=== PATIENT | male | born 1985 | race Caucasian/White ===

== ENCOUNTER 2020-08-04 10:08 | Emergency (ER) | payer BC, MEDICAID ==
[~2020-08-04] VITALS: Ht 172.7 cm; Wt 61.2 kg
--- NOTE | 2020-08-04 11:30 | NUR ---
ED Nurse Note:pt. came with right eye irritation, irrigation with NS was done via amanda ricks
[2020-08-04 12:09] VITALS: BP 133/75
[2020-08-04] MEDS ORDERED: Fluorescein Strips RIGHT EYE ONE (13:00)
--- NOTE | 2020-08-04 13:37 | Emergency Room Report ---
History of Present Illness General Chief Complaint: Eye Problems Source: Patient Present Illness HPI The patient states that earlier this morning he was handling a succulent plant and some of the steps from the plant squirted into his right eye. He states he had irritation and pain in the right eye. He denies trauma. He states this was only the staff and not any part of the plant itself. He states at times will have blurry vision but then he will blink and his vision will be clear. He has no other injuries or complaints. Allergies: Coded Allergies: No Known Allergies (Unverified , 08/04/20) COVID-19 Screening Contact w/high risk pt: No Experienced COVID-19 symptoms?: No COVID-19 Testing performed FAMILY HEALTH NURSE PRACTITIONER: No Patient History Past Medical History: none Social History: Denies: smoking, alcohol use, drug use Reviewed Nursing Documentation: PMH: Agreed; PSxH: Agreed Nursing Documentation-PMH Past Medical History: No Stated History Review of Systems All Other Systems: negative except mentioned in HPI Physical Exam Vital Signs Date Time Temp Pulse Resp B/P (MAP) Pulse Ox O2 Delivery O2 Flow Rate FiO2 08/04/20 10:13 98.6 105 16 133/75 (94) 95 Room Air Sp02 EP Interpretation: reviewed, normal General Appearance: no apparent distress, alert, GCS 15, non-toxic Head: normocephalic, atraumatic Eyes: right eye other - conjunctival erythema, No fluorescin uptake on wood's lamp examination.; left eye normal inspection; bilateral eye PERRL, bilateral eye EOMI ENT: hearing grossly normal, no angioedema, normal voice Neck: normal inspection, full range of motion Respiratory: no respiratory distress, no retraction, no accessory muscle use, speaking full sentences Rectal: deferred Musculoskeletal: normal inspection, gait/station normal, non-tender Neurologic: alert, motor strength/tone normal, oriented x3, sensory intact, responsive, speech normal Psychiatric: judgement/insight normal, memory normal, mood/affect normal, no suicidal/homicidal ideation Medical Decision Making Diagnostic Impression: Primary Impression: Chemical conjunctivitis ER Course This patient has a chemical conjunctivitis. The patient underwent irrigation by Deny suzanne. There is no evidence of eye injury. Fluorescein uptake was negat bryan. I will place the patient on topical antibiotics and have the patient follow-up in the next 24 hours with an osteologist or tire mechanic. The patient is given close return precautions and follow-up instructions. Last Vital Signs Date Time Temp Pulse Resp B/P (MAP) Pulse Ox O2 Delivery O2 Flow Rate FiO2 08/04/20 12:09 98.6 16 133/75 95 Room Air 08/04/20 10:13 105 Status: improved Disposition: HOME, SELF-CARE Condition: Improved Referrals: [facility] (PCP) Patient Instructions: Chemical Conjunctivitis, [id number] Nicky Bauer DO Aug 04, 2020 13:37
[2020-08-04 13:38] VITALS: BP 124/73
[2020-08-04] MEDS ORDERED: ERYTHROMYCIN3.5 GM RIGHT EYE (13:38)
--- NOTE | 2020-08-04 13:39 | NUR ---
ED Nurse Note: Pt cleared by health care Provider for discharge. DC instructions/prescription was given and explained to pt and verbalized understanding of teachings. All medical deviecs such as ID band removed. Pt is AAO x4, ambulatory and left with all personal belongings.
== END 2020-08-04 13:45 | disposition home or self-care (01) ==
LOC: EMR 11:55
DX: H10.211 Acute toxic conjunctivitis, right eye (principal)
CPT/HCPCS: 99282